=== PATIENT | female | born 1975 | race American Indian/Alaskan Native ===

== ENCOUNTER 2018-04-04 15:45 | Emergency (ER) | payer OTHER, BC ==
[2018-04-04] MEDS ORDERED: MOTRIN PO ONE (22:36)
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
--- NOTE | 2018-04-05 00:17 | XRay Report ---
FINAL REPORT PROCEDURE: XR SPINE LUMBOSACRAL 2-3V TECHNIQUE: Lumbar spine radiographs, frontal and lateral views. CPT 23778 HISTORY: low back pain COMPARISON: No prior studies are available for comparison. FINDINGS: Alignment: Normal . Vertebral body heights/Disk spaces: Normal . Fracture(s): None . Facets: Normal . Bone mineralization: Normal . IMPRESSION: Normal Examination
--- NOTE | 2018-04-05 00:19 | XRay Report ---
FINAL REPORT PROCEDURE: XR SHOULDER 2+V RT TECHNIQUE: Right shoulder radiographs including AP views in internal and external rotation and abduction. CPT 53271 HISTORY: right shoulder pain COMPARISON: No prior studies are available for comparison. FINDINGS: Fracture (s) and/or Dislocation(s): None . Joint space(s): Normal . Soft tissues: Normal . Bone mineralization: Normal . Foreign bodies: None . IMPRESSION: Normal Examination
--- NOTE | 2018-04-05 00:20 | XRay Report ---
FINAL REPORT PROCEDURE: XR SPINE CERVICAL 2-3V TECHNIQUE: Cervical spine radiographs, minimum of four views, including AP, lateral and bilateral oblique projections. HISTORY: [facility] pain COMPARISON: No prior studies are available for comparison. FINDINGS: Prevertebral soft tissues: Normal. Alignment: Normal. Vertebral body heights/Disk spaces: Normal. Fracture(s): None. Neural foramina: Normal. Facets: Normal. Bone mineralization: Normal. IMPRESSION: Normal Examination.
[2018-04-05 01:44] VITALS: BP 130/80
== END 2018-04-04 23:50 | disposition home or self-care (01) ==
LOC: ED 15:45
DX: S13.4XXA Sprain of ligaments of cervical spine, initial encounter (principal); S46.911A Strain of unspecified muscle, fascia and tendon at shoulder and upper arm level, right arm, initial encounter; S39.012A Strain of muscle, fascia and tendon of lower back, initial encounter; V49.49XA Driver injured in collision with other motor vehicles in traffic accident, initial encounter; Y93.89 Activity, other specified; Y92.89 Other specified places as the place of occurrence of the external cause; Y99.8 Other external cause status
CPT/HCPCS: 72040; 72100